=== PATIENT | female | born 1950 | race Hispanic/Latino ===

== ENCOUNTER → 2018-08-11 | Day surgery (SDC) | payer OTHER ==
[2018-08-06 09:55] LABS: BASOPHILS # (AUTO) 0.1 (0.0-0.1); BASOPHILS % 1.2 % (0.0-1.0); EOSINOPHILS # (AUTO) 0.1 (0.0-0.4); EOSINOPHILS % 2.7 % (0.0-6.0); HEMATOCRIT 45.3 % (34.2-44.1); HEMOGLOBIN 15.4 g/dL (12.0-16.0); LYMPHOCYTES # (AUTO) 2.3 (1.0-3.2); LYMPHOCYTES % 43.6 % (18.0-39.1); MEAN CORPUSCULAR HEMOGLOBIN 29.6 pg (28-32); MEAN CORPUSCULAR VOLUME 86.9 fL (81-99); MONOCYTES # (AUTO) 0.5 (0.2-0.8); MONOCYTES % 9.2 % (4.4-11.3); NEUTROPHILS # (AUTO) 2.3 (2.1-6.9); NEUTROPHILS % 43.1 % (38.7-80.0); PLATELET COUNT 286 x10e3/uL (140-360); RED BLOOD COUNT 5.21 x10e6/uL (3.6-5.1); RED CELL DISTRIBUTION WIDTH 12.8 % (11.7-14.4)
[~2018-08-11] MED LIST: ACID REFLUX; FENTANYL CITRATE/PF 100MCG/2 ML INJ ONE; HYOSCYAMINE SULFATE 0.5 MG/ML INJ ONE; MIDAZOLAM HCL 2 MG/2 ML VIAL ONE; PHENYLEPHRINE HCL 1% 10 MG/ML VIAL ONE; PROPOFOL IV EMULSION 10 MG/ML 50 ML VIAL ONE
--- OUTSIDE RECORDS SUMMARY | 2018-08-11 09:03 | XMS REPORT ---
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 Conditions or Problems Problem Name Problem Code Onset Date Status Entry Date Provider Comment Standard Description Annotate Abdominal bloating 787.3 Active Moises Ziegler MD Flatulence, eructation, and gas pain Abfnd Pap smear HPV DNA 079.4 Active Yoli Ling MD Human papillomavirus infection in conditions classified elsewhere and of unspecified site ASCUS Pap 795.01 Active Yoli Ling MD Papanicolaou smear of cervix with atypical squamous cells of undetermined significance (ASC-US) Mammogram, Screening V76.12 Active Yoli Ling MD Other screening mammogram Screening Pap smear exam for cervical cancer V76.2 Active Yoli Ling MD Screening for malignant neoplasms of the cervix Annual exam V70.0 Active Lida Fairbanks MD Routine general medical examination at a health care facility BMI 26.0-26.9 Active Lida Fairbanks MD Body Mass Index 26.0-26.9, adult Hyperlipidemia 272.4 Active Lida Fairbanks MD Other and unspecified hyperlipidemia Immunization update V15.9 Active Lida Fairbanks MD Unspecified personal history presenting hazards to health Overweight Active Lida Fairbanks MD Overweight Strain of muscle and tendon of Pectoralis major, initial encounter 848.8 Active Lida Fairbanks MD Other specified sites of sprains and strains Screening, STD V74.5 Inactive Lida Fairbanks MD Screening examination for venereal disease Screening, STD ICD-V74.5 Inactive Lida Fairbanks MD Medication List Medication Instructions Start Date Stop Date Generic Name NDC Status Provider Patient Instruction LIPITOR 10 MG ORAL TABLET 1 by mouth every pm ATORVASTATIN CALCIUM 11939381706 Active Lida Fairbanks MD Active BIOFREEZE 4 % EXTERNAL GEL Apply with massage as needed over affected area BIOFREEZE 4 % EXTERNAL GEL MENTHOL (TOPICAL ANALGESIC) Inactive MELOXICAM 15 MG ORAL TABLET Take 1 tablet Every Day MELOXICAM 15 MG ORAL TABLET 813722 MELOXICAM Inactive BIOFREEZE 4 % EXTERNAL GEL Apply with massage as needed over affected area MENTHOL (TOPICAL ANALGESIC) 25963047203 No Longer Active Yoli Ling MD Active MELOXICAM 15 MG ORAL TABLET Take 1 tablet Every Day MELOXICAM [id number] No Longer Active Yoli Ling MD Active Immunizations Vaccine Administration Date Value Standard Description influenza immunization (Flu Vax) has been administered given influenza virus vaccine, unspecified formulation PEDIATRIC PNEUMOCOCCAL VACCINE ([id number]) #1 given pneumococcal conjugate vaccine, 13 valent varicella shingles vaccine given varicella virus vaccine Vital Signs Date Name Value Unit Range Description blood pressure, diastolic 79 mm[Hg] BP zamora blood pressure, systolic 116 mm[Hg] BP sys height E&M 62 [in_us] Bdy height pulse rate E&M 89 /min Heart rate respiratory rate E&M 20 /min Resp rate temperature E&M 98.5 [degF] Body temperature weight E&M 139 [lb_av] Weight Measured blood pressure, diastolic 78 mm[Hg] BP zamora blood pressure, systolic 126 mm[Hg] BP sys height E&M 62 [in_us] Bdy height pulse rate E&M 73 /min Heart rate temperature E&M 98.1 [degF] Body temperature weight E&M 137.13 [lb_av] Weight Measured blood pressure, diastolic 81 mm[Hg] BP zamora blood pressure, systolic 104 mm[Hg] BP sys height E&M 62 [in_us] Bdy height pulse rate E&M 93 /min Heart rate temperature E&M 98.1 [degF] Body temperature weight E&M 140.38 [lb_av] Weight Measured blood pressure, diastolic, second observation 75 mm[Hg] BP zamora blood pressure, diastolic 75 mm[Hg] BP zamora blood pressure, systolic, second observation 127 mm[Hg] BP sys blood pressure, systolic 127 mm[Hg] BP sys height E&M 62 [in_us] Bdy height pulse rate E&M 92 /min Heart rate temperature E&M 97.6 [degF] Body temperature weight E&M 142.13 [lb_av] Weight Measured Diagnostic Results Date Name Value Unit Range Description Lab Report: CBC With Differential/Platelet, Comp. Metabolic Panel (14), ... - Chemistry thyroid stimulating hormone, serum 4.730 u[iU]/mL 0.450-4.500 very low density lipoproteins 37 mg/dL 5-40 hepatitis B surface antigen Negative Negative chloride, serum 103 mmol/L 96-106 urea nitrogen, blood 12 mg/dL 8-27 Lab Report: Urinalysis, Routine - Urinalysis leukocyte esterase, urine, by dipstick Negative Negative Lab Report: CBC With Differential/Platelet, Comp. Metabolic Panel (14), ... - Hematology mean corpuscular hemoglobin concentration, RBC 33.5 G/DL % 31.5-35.7 erythrocyte (RBC) count 4.99 X10E6/UL 10*6/mm3 3.77-5.28 Lab Report: CBC With Differential/Platelet, Comp. Metabolic Panel (14), ... - Serology hepatitis C antibody, serum <0.1 0.0-0.9 Lab Report: Urinalysis, Routine - Urinalysis urine color Yellow Yellow bilirubin, urine Negative Negative Lab Report: CBC With Differential/Platelet, Comp. Metabolic Panel (14), ... - Chemistry Absolute Neutrophils 2.6 X10E3/UL 10*3/uL 1.4-7.0 LDL cholesterol, serum 163 mg/dL 0-99 urea nitrogen/creatinine ratio, serum 13 12-28 Lab Report: CBC With Differential/Platelet, Comp. Metabolic Panel (14), ... - Hematology mean corpuscular volume, RBC 89 fL 79-97 Lab Report: CBC With Differential/Platelet, Comp. Metabolic Panel (14), ... - Chemistry HDL cholesterol, serum 51 mg/dL >39 Lab Report: CBC With Differential/Platelet, Comp. Metabolic Panel (14), ... - Hematology monocytes as percent of blood leukocytes 9 % Not Estab. Lab Report: CBC With Differential/Platelet, Comp. Metabolic Panel (14), ... - Chemistry albumin/globulin ratio, serum 1.7 1.2-2.2 creatinine, serum 0.94 mg/dL 0.57-1.00 cholesterol, serum 251 mg/dL 319-334 6594/10/05 bilirubin, serum, total 0.4 mg/dL 0.0-1.2 Lab Report: CBC With Differential/Platelet, Comp. Metabolic Panel (14), ... - Hematology Eosinophil Absolute Count 0.1 X10E3/UL 10*3/uL 0.0-0.4 Lab Report: Urinalysis, Routine - Urinalysis appearance, urine Clear Clear Lab Report: CBC With Differential/Platelet, Comp. Metabolic Panel (14), ... - Chemistry aspartate aminotransferase (SGOT), serum 20 U/L 0-40 Lab Report: CBC With Differential/Platelet, Comp. Metabolic Panel (14), ... - Hematology red blood cell distribution width 13.6 % 12.3-15.4 Lab Report: Urinalysis, Routine - Urinalysis urinalysis, microscopic examination MICNIP pH, urine, semiquantitative 7.5 5.0-7.5 Lab Report: CBC With Differential/Platelet, Comp. Metabolic Panel (14), ... - Hematology leukocyte count, blood 5.0 X10E3/UL 10*3/mm3 3.4-10.8 Lab Report: CBC With Differential/Platelet, Comp. Metabolic Panel (14), ... - Chemistry potassium, serum 4.7 mmol/L 3.5-5.2 albumin, serum 4.9 g/dL 3.6-4.8 immature granulocytes, percentage of total cells, blood 1 % Not Estab. Lab Report: CBC With Differential/Platelet, Comp. Metabolic Panel (14), ... - Hematology lymphocyte count, blood, automated 1.9 X10E3/UL 10*3/mm3 0.7-3.1 hematocrit, blood 44.5 % 34.0-46.6 Lab Report: CBC With Differential/Platelet, Comp. Metabolic Panel (14), ... - Chemistry sodium, serum 141 mmol/L 134-144 Lab Report: CBC With Differential/Platelet, Comp. Metabolic Panel (14), ... - Hematology neutrophils as percent of blood leukocytes 50 % Not Estab. basophils as percent of blood leukocytes 0 % Not Estab. Lab Report: Urinalysis, Routine - Chemistry specific gravity, body fluid 1.011 1.005-1.030 Lab Report: Urinalysis, Routine - Urinalysis protein, urine, semiquantitative (dipstick) Negative Negative/Trace Lab Report: CBC With Differential/Platelet, Comp. Metabolic Panel (14), ... - Serology rapid plasma reagin antibody, serum Non Reactive Non Reactive Lab Report: CBC With Differential/Platelet, Comp. Metabolic Panel (14), ... - Chemistry carbon dioxide, venous blood 22 mmol/L 20-29 Lab Report: Urinalysis, Routine - Chemistry nitrate, urine Negative Negative Lab Report: CBC With Differential/Platelet, Comp. Metabolic Panel (14), ... - Chemistry triglyceride, serum, fasting 185 mg/dL 0-149 calcium, serum 10.6 mg/dL 8.7-10.3 alanine aminotransferase (SGPT), serum 20 U/L 0-32 Lab Report: CBC With Differential/Platelet, Comp. Metabolic Panel (14), ... - Hematology mean corpuscular hemoglobin, RBC 29.9 pg 26.6-33.0 Lab Report: CBC With Differential/Platelet, Comp. Metabolic Panel (14), ... - Chemistry protein, total, serum 7.8 g/dL 6.0-8.5 alkaline phosphatase, serum 113 U/L 39-117 Lab Report: CBC With Differential/Platelet, Comp. Metabolic Panel (14), ... - Hematology hemoglobin, blood 14.9 g/dL 11.1-15.9 lymphocytes as percent of blood leukocytes 37 % Not Estab. Lab Report: Urinalysis, Routine - Urinalysis glucose, urine, semiquantitative Negative Negative Lab Report: CBC With Differential/Platelet, Comp. Metabolic Panel (14), ... - Genetics/fertility eGFR if 73 mL/min/1.73m2 >59 Lab Report: CBC With Differential/Platelet, Comp. Metabolic Panel (14), ... - Chemistry thyroxine, serum, free 1.14 ng/dL 0.82-1.77 Lab Report: CBC With Differential/Platelet, Comp. Metabolic Panel (14), ... - Hematology basophil count, absolute 0.0 x10E3/uL 0.0-0.2 Lab Report: CBC With Differential/Platelet, Comp. Metabolic Panel (14), ... - Chemistry globulin, serum 2.9 1.5-4.5 Estimated Glomerular Filtration Rate (calc) 63 mL/min/1.73m2 >59 Lab Report: Urinalysis, Routine - Basic Occult Blood, urine Negative Negative Lab Report: CBC With Differential/Platelet, Comp. Metabolic Panel (14), ... - Hematology eosinophils as percent of blood leukocytes 3 % Not Estab. Lab Report: CBC With Differential/Platelet, Comp. Metabolic Panel (14), ... - Chemistry blood glucose, random 96 mg/dL 65-99 Lab Report: Urinalysis, Routine - Urinalysis urobilinogen, urine, semiquantitative (dipstick) 0.2 0.2-1.0 Lab Report: CBC With Differential/Platelet, Comp. Metabolic Panel (14), ... - Hematology monocyte count, blood, automated 0.4 X10E3/UL 10*3/uL 0.1-0.9 Lab Report: Urinalysis, Routine - Urinalysis ketones, urine, by test strip Negative Negative Lab Report: CBC With Differential/Platelet, Comp. Metabolic Panel (14), ... - Hematology platelet count 180 X10E3/UL 10*3/mm3 150-379 Encounters Date Encounter Provider Code Facility 21:12:37 [employer] [facility] Est Patient Exp Problem - 04738 Moises Ziegler MD CPT-63216 [facility] 16:47:29 CDT Est Patient Exp Problem - 51187 Lida Fairbanks MD CPT-32338 [facility] Procedures Code Procedure Name Date Entry Date Standard Description [id number] Colposcopy w/o Biopsy 10:41:04 [employer]
[2018-08-11 13:30] VITALS: BP 133/91
== END | disposition home or self-care (01) ==
LOC: OR 09:00
PROVIDERS: ATTEND Internal Medicine Gastroenterology
DX: Z12.11 Encounter for screening for malignant neoplasm of colon (principal); K64.8 Other hemorrhoids; K57.30 Diverticulosis of large intestine without perforation or abscess without bleeding; N28.1 Cyst of kidney, acquired; R10.13 Epigastric pain; R10.31 Right lower quadrant pain; R14.0 Abdominal distension (gaseous)
CPT/HCPCS: 36415; 45378; 85025; 93005; J1980; J2250; J2370

== ENCOUNTER → 2018-08-13 | Outpatient (CLI) | payer OTHER ==
[~2018-08-13] MED LIST changes: -FENTANYL CITRATE/PF 100MCG/2 ML INJ ONE; -HYOSCYAMINE SULFATE 0.5 MG/ML INJ ONE; -MIDAZOLAM HCL 2 MG/2 ML VIAL ONE; -PHENYLEPHRINE HCL 1% 10 MG/ML VIAL ONE; -PROPOFOL IV EMULSION 10 MG/ML 50 ML VIAL ONE
--- NOTE | 2018-08-13 13:31 | Diagnostic Imaging Report ---
Exam: Pelvic ultrasound. History: Right lower quadrant abdominal pain. Comparison: None. Findings: Transabdominal ultrasound. The uterus is reportedly surgically absent per the patient. The bilateral ovaries are not seen, likely secondary to overlying bowel gas. No free fluid is present. The bladder is unremarkable in appearance. Impression: Status post hysterectomy per the patient. The bilateral ovaries are not seen, likely secondary to overlying bowel gas. No free fluid. Signed by: Dr. Fabrice Polanco MD on 08/13/2018 1:27 PM
== END ==
LOC: US 10:16
PROVIDERS: ATTEND Internal Medicine Gastroenterology
DX: R10.31 Right lower quadrant pain (principal)
CPT/HCPCS: 76856

== ENCOUNTER → 2019-05-07 | Day surgery (SDC) | payer OTHER ==
[2019-04-29 16:57] LABS: BASOPHILS # (AUTO) 0.1 (0.0-0.1); BASOPHILS % 0.9 % (0.0-1.0); EOSINOPHILS # (AUTO) 0.2 (0.0-0.4); EOSINOPHILS % 3.3 % (0.0-6.0); HEMATOCRIT 43.2 % (34.2-44.1); HEMOGLOBIN 14.9 g/dL (12.0-16.0); LYMPHOCYTES # (AUTO) 2.6 (1.0-3.2); LYMPHOCYTES % 47.9 % (18.0-39.1); MEAN CORPUSCULAR HEMOGLOBIN 30.4 pg (28-32); MEAN CORPUSCULAR HGB CONC 34.5 g/dL (31-35); MEAN CORPUSCULAR VOLUME 88.2 fL (81-99); MONOCYTES # (AUTO) 0.6 (0.2-0.8); MONOCYTES % 11.7 % (4.4-11.3); PLATELET COUNT 301 x10e3/uL (140-360); RED CELL DISTRIBUTION WIDTH 12.9 % (11.7-14.4)
[~2019-05-07] MED LIST changes: +ATORVASTATIN CA20 MG PO; +FENTANYL CITRATE/PF 100MCG/2 ML INJ ONE; +OMEPRAZOLE40 MG PO; +PROPOFOL IV EMULSION 10 MG/ML 50 ML VIAL ONE
--- OUTSIDE RECORDS SUMMARY | 2019-05-07 09:20 | XMS REPORT ---
Author Author Admin, [place] Organization Unknown Address Unknown Phone Unavailable PROBLEMS Condition Status Date Provider Notes Dyspepsia active Vinny Guzman Seborrheic keratosis active Vinny Guzman Need for prophylactic vaccination with unspecified combined vaccine completed - Gisela Shaw Need for prophylactic vaccination with unspecified combined vaccine completed - Gisela Shaw Abdominal bloating completed - Vinny Guzman Abfnd Pap smear HPV DNA active Yoli Ling ASCUS Pap completed - Vinny Guzman Screening Pap smear exam for cervical cancer completed - Vinny Guzman Mammogram, Screening completed - Eugenieo Guzman Hyperlipidemia active Lida Fairbanks Immunization update completed - Eugenieo Megan Screening, STD completed - Lida Fairbanks Annual exam completed - Vinny Guzman Strain of muscle and tendon of Pectoralis major, initial encounter completed - Yano Megan BMI 26.0-26.9 active Lida Fairbanks Overweight active Lida Fairbanks ENCOUNTERS Date Type Provider Location Encounter Diagnosis - [facility] UNK - Ambulatory Encounter Martha Rosado [facility] - Ambulatory Encounter Vinny Guzman [facility] UNK - Ambulatory Encounter Vinny Guzman [facility] UNK - Ambulatory Encounter Vinny Malloyal Vinny Guzman [facility] UNK - Ambulatory Encounter Moises Guzman [facility] Screening Pap smear exam for cervical cancerAbdominal bloating - [facility] Vinny Guzman [facility] UNK - Ambulatory Encounter Vinny Guzman [facility] UNK - Ambulatory Encounter Vinny Guzman [facility] UNK - Ambulatory Encounter Vinny Guzman [facility] UNK - Ambulatory Encounter Moises Gil [facility] Strain of muscle and tendon of Pectoralis major, initial encounterAnnual examImmunization updateMammogram, ScreeningASCUS PapSeborrheic keratosisDyspepsia - Ambulatory Encounter Duyen Varela [facility] UNK - Ambulatory Encounter Martha Prather [facility] UNK - Ambulatory Encounter Gisela Shaw [facility] Need for prophylactic vaccination with unspecified combined vaccine - Ambulatory Encounter Gisela Shaw [facility] Need for prophylactic vaccination with unspecified combined vaccine - Ambulatory Encounter Martha Rosado [facility] UNK - Ambulatory Encounter Indigo Cameron [employer] [facility] UNK - Ambulatory Encounter Berariel Cameron [facility] UNK - Ambulatory Encounter Indigo Cameron [facility] UNK - Ambulatory Encounter Moises Flynn [facility] Abdominal bloating - Ambulatory Encounter Gisel Gunn [facility] ROLL CUTTING OPERATOR UNK - Ambulatory Encounter Gisel Gunn [facility] ROLL CUTTING OPERATOR UNK - Ambulatory Encounter Gisel David [facility] ROLL CUTTING OPERATOR UNK - Ambulatory Encounter Kristel Soares [facility] UNK - Ambulatory Encounter Yoli Ling [facility] ASCUS PapAbfnd Pap smear HPV DNA - Ambulatory Encounter Lida Fairbanks Lida Fairbanks [employer] Yoli Soares [facility] UNK - Ambulatory Encounter Lida Fairbanks Lida Fairbanks [employer] [facility] UNK - Ambulatory Encounter Yoli Ling [employer] UNK - Ambulatory Encounter Lida Fairbanks [facility] En[facility] Lida Fairbanks [facility] UNK - Ambulatory Encounter Lida Fairbanks [facility] UNK - Ambulatory Encounter Lida Ramirezdo Camerona S Colin Higgins S Colin Yoli Ling [facility] Mammogram, ScreeningScreening Pap smear exam for cervical cancer - Ambulatory Encounter Kristel Soares [facility] UNK - Ambulatory En[facility]da [facility] UN[facility] - Ambulatory Encounter Lida Fairbanks [facility] UNK - [facility] - [facility] - Ambulatory Encounter Lida Fairbanks [facility] UNK - Ambulatory Encounter Lida Ramirezdo Camerona S Colin Camerona S Colin Humphries [facility] OverweightBMI 26.0-26.9Strain of muscle and tendon of Pectoralis major, initial encounterAnnual examScreening, STDImmunization updateHyperlipidemia VITAL SIGNS No Information Available Allergies No Known Allergy Information REASON FOR REFERRAL Start Date - End Date Service - Ultrasound - Pelvic - Ultrasound - Abdominal - Mammogram - Screening RESULTS Date Observation Value Provider Reference Range Interpretation Location cancer 125 antigen 16.0 1/mL [employer] 0.0-38.1 hemoglobin A1C, blood, as % of total hemoglobin 5.6 % [employer] 4.8-5.6 " LDL cholesterol, serum 91 mg/dL [employer] 0-99 " very low density lipoproteins 23 mg/dL [employer] 5-40 " HDL cholesterol, serum 50 mg/dL [employer] >39 " triglyceride, serum, fasting 114 mg/dL [employer] 0-149 " cholesterol, serum 164 mg/dL [employer] 100-199 " alanine aminotransferase (SGPT), serum 17 1/L [employer] 0-32 " aspartate aminotransferase (SGOT), serum 19 1/L [employer] 0-40 " alkaline phosphatase, serum 89 1/L [employer] 39-117 " bilirubin, serum, total 0.5 mg/dL [employer] 0.0-1.2 " albumin/globulin ratio, serum 1.8 [employer] 1.2-2.2 " globulin, serum 2.6 [employer] 1.5-4.5 " albumin, serum 4.8 g/dL [employer] 3.6-4.8 " protein, total, serum 7.4 g/dL [employer] 6.0-8.5 " calcium, serum 10.5 mg/dL [employer] 8.7-10.3 High " carbon dioxide, venous blood 25 mmol/L [employer] 20-29 " chloride, serum 106 mmol/L [employer] 96-106 " potassium, serum 5.9 mmol/L [employer] 3.5-5.2 High " sodium, serum 144 mmol/L [employer] 134-144 " urea nitrogen/creatinine ratio, serum 14 [employer] 12-28 " eGFR if 68 mL/min/((173/100).m2) [employer] >59 " Estimated Glomerular Filtration Rate (calc) 59 mL/min/((173/100).m2) [employer] >59 Low " creatinine, serum 0.99 mg/dL [employer] 0.57-1.00 " urea nitrogen, blood 14 mg/dL [employer] 8-27 " blood glucose, random 93 mg/dL [employer] 65-99 hepatitis B surface antigen Negative [employer] Negative " thyroxine, serum, free 1.14 ng/dL [employer] 0.82-1.77 " thyroid stimulating hormone, serum 4.730 u[iU]/mL [employer] 0.450-4.500 High " hepatitis C antibody, serum <0.1 [employer] 0.0-0.9 " HIV-CMIA (Chemiluminescent Microparticle Immuno Assay) Non Reactive [employer] Non Reactive " rapid plasma reagin antibody, serum Non Reactive [employer] Non Reactive " LDL cholesterol, serum 163 mg/dL [employer] 0-99 High " very low density lipoproteins 37 mg/dL [employer] 5-40 " HDL cholesterol, serum 51 mg/dL [employer] >39 " triglyceride, serum, fasting 185 mg/dL [employer] 0-149 High " cholesterol, serum 251 mg/dL [employer] 100-199 High " alanine aminotransferase (SGPT), serum 20 1/L [employer] 0-32 " aspartate aminotransferase (SGOT), serum 20 1/L [employer] 0-40 " alkaline phosphatase, serum 113 1/L [employer] 39-117 " bilirubin, serum, total 0.4 mg/dL [employer] 0.0-1.2 " albumin/globulin ratio, serum 1.7 [employer] 1.2-2.2 " globulin, serum 2.9 [employer] 1.5-4.5 " albumin, serum 4.9 g/dL [employer] 3.6-4.8 High " protein, total, serum 7.8 g/dL [employer] 6.0-8.5 " calcium, serum 10.6 mg/dL [employer] 8.7-10.3 High " carbon dioxide, venous blood 22 mmol/L [employer] 20-29 " chloride, serum 103 mmol/L [employer] 96-106 " potassium, serum 4.7 mmol/L [employer] 3.5-5.2 " sodium, serum 141 mmol/L [employer] 134-144 " urea nitrogen/creatinine ratio, serum 13 [employer] 12-28 " eGFR if 73 mL/min/((173/100).m2) [employer] >59 " Estimated Glomerular Filtration Rate (calc) 63 mL/min/((173/100).m2) [employer] >59 " creatinine, serum 0.94 mg/dL [employer] 0.57-1.00 " urea nitrogen, blood 12 mg/dL [employer] 8-27 " blood glucose, random 96 mg/dL [employer] 65-99 " immature granulocytes, percentage of total cells, blood 1 % [employer] Not Estab. " basophil count, absolute 0.0 x10E3/uL [employer] 0.0-0.2 " Eosinophil Absolute Count 0.1 X10E3/UL [employer] 0.0-0.4 " monocyte count, blood, automated 0.4 X10E3/UL [employer] 0.1-0.9 " lymphocyte count, blood, automated 1.9 X10E3/UL [employer] 0.7-3.1 " Absolute Neutrophils 2.6 X10E3/UL [employer] 1.4-7.0 " basophils as percent of blood leukocytes 0 % [employer] Not Estab. " eosinophils as percent of blood leukocytes 3 % [employer] Not Estab. " monocytes as percent of blood leukocytes 9 % [employer] Not Estab. " lymphocytes as percent of blood leukocytes 37 % [employer] Not Estab. " neutrophils as percent of blood leukocytes 50 % [employer] Not Estab. " platelet count 180 X10E3/UL [employer] 150-379 " red blood cell distribution width 13.6 % [employer] 12.3-15.4 " mean corpuscular hemoglobin concentration, RBC 33.5 G/DL [employer] 31.5-35.7 " mean corpuscular hemoglobin, RBC 29.9 pg [employer] 26.6-33.0 " mean corpuscular volume, RBC 89 fL [employer] 79-97 " hematocrit, blood 44.5 % [employer] 34.0-46.6 " hemoglobin, blood 14.9 g/dL [employer] 11.1-15.9 " erythrocyte (RBC) count 4.99 X10E6/UL [employer] 3.77-5.28 " leukocyte count, blood 5.0 X10E3/UL [employer] 3.4-10.8 urinalysis, microscopic examination MICNIP [employer] " nitrate, urine Negative [employer] Negative " urobilinogen, urine, semiquantitative (dipstick) 0.2 [employer] 0.2-1.0 " bilirubin, urine Negative [employer] Negative " ketones, urine, by test strip Negative [employer] Negative " glucose, urine, semiquantitative Negative [employer] Negative " protein, urine, semiquantitative (dipstick) Negative [employer] Negative/Trace " leukocyte esterase, urine, by dipstick Negative [employer] Negative " appearance, urine Clear [employer] Clear " urine color Yellow [employer] Yellow " pH, urine, semiquantitative 7.5 [employer] 5.0-7.5 " specific gravity, body fluid 1.011 [employer] 1.005-1.030 HISTORY OF IMMUNIZATIONS Date Vaccine Dose Lot Number Status Fluzone High-Dose IM [id number] sanofi pasteur 0.5 mL [id number] completed HISTORY OF MEDICATION USE Medication Instructions Dates Provider Comments PANTOPRAZOLE SODIUM 40 MG ORAL TABLET DELAYED RELEASE 1 tablet in morning before breakfast By Mouth daily Vinny Guzman METAMUCIL 48.57 % ORAL POWDER 1 tsp mixed in liquid up to 3 times per day Vinny Guzman EQ GAS RELIEF EXTRA STRENGTH 125 MG ORAL TABLET CHEWABLE 1 By Mouth Twice a Day Eugenieo Megan LIPITOR 10 MG ORAL TABLET 1 by mouth every pm Lida Fairbanks thai BIOFREEZE 4 % EXTERNAL GEL Apply with massage as needed over affected area - Lida Fairbanks MELOXICAM 15 MG ORAL TABLET Take 1 tablet Every Day - Lida Fairbanks thai SOCIAL HISTORY Date Observation Value Provider drug use, illicit Never Alice Cameron " alcohol use Never Alice Cameron " social history reviewed E&M reviewed today Alice Cameron " sexual orientation Heterosexual Alice Cameron " assessment of health literacy ([facility] 2014 Standards, 3C10) Adequate Alice Cameron " passive cigarette smoke exposure No Alice Cameron " smoking status never smoker Alice Cameron " Exercise Program Referral T Alice Jack " Weight Management Counseling Provided T Alice Rakesh " Nutrition intervention T Alice Rakesh Patient was counseled for sexual safety Counseled for sexual health safety. Vinny Guzman " Exercise Program Referral T Vinny Guzman " Weight Management Counseling Provided T Vinny Guzman " Nutrition intervention T Vinny Guzman " is there any chance that you could be ? No Vinny Guzman " drug use, illicit Never Jessi Lara " alcohol use Never Jessi Lara " social history reviewed E&M reviewed today Jessi Lara " assessment of health literacy ([facility] 2014 Standards, 3C10) Adequate Jessisacha Lara " passive cigarette smoke exposure No Jessisacha Lara " smoking status never smoker Jessi Lara time of call 01/01/2019 1:21 PM Vera Varlea drug use, illicit Never Monica Gee " alcohol use Never Monica Gee " social history reviewed E&M reviewed today Monica Flynn " sexual orientation Heterosexual Monica Flynn " passive cigarette smoke exposure No Monica Flynn " smoking status never smoker Monica Gee " Exercise Program Referral T Monica Flynn " Weight Management Counseling Provided T Monica Flynn " Nutrition intervention T Monica Flynn " is there any chance that you could be ? No Martha David " passive cigarette smoke exposure No Martha Cosbycolinda " smoking status never smoker Martha David time of call 04/17/2018 4:15 PM Kristel Soares Exercise Program Referral T Lida Fairbanks " Weight Management Counseling Provided T Lida Fairbanks " Nutrition intervention T Lida Fairbanks " drug use, illicit Never Kristel Soares " alcohol use Never Kristel Soares " social history reviewed E&M reviewed today Kristel Soares " sexual orientation Heterosexual Kristel Soares " is there any chance that you could be ? No Kristel Soares " passive cigarette smoke exposure No Kristel Soares " smoking status never smoker Kristel Soares time of call 03/26/2018 10:39 AM Kristel Soares Exercise Program Referral T Lida Fairbanks " Weight Management Counseling Provided T Lida Fairbanks " Nutrition intervention T Lida Fairbanks " sex at Female Kristel Soares " patient considered to be homeless No Kristel Soares " drug use, illicit Never Kristel Soares " alcohol use Never Kristel Soares " sexual orientation Heterosexual Kristel Soares " is there any chance that you could be ? No Kristel Soares " passive cigarette smoke exposure No Kristel Soares " smoking status never smoker Kristel Soares FUNCTIONAL STATUS No Information Available MENTAL STATUS Date Observation Value Provider assessment of judgment and insight E&M intact Vinny Guzman " mental status examination: orientation E&M oriented to time, place, and person Yandro Guzman " assessment of mood and affect E&M anxious Yandro Megan " Generalized Anxiety Disorder Questionnaire - Question 2 0 Alice Cameron " Generalized Anxiety Disorder Questionnaire - Question 1 0 Alice Cameron mental status examination: orientation E&M oriented to time, place, and person Yandro Guzman " assessment of mood and affect E&M no depression, anxiety, or agitation Yandro Guzman " Generalized Anxiety Disorder Questionnaire - Question 2 0 Jessi Lara " Generalized Anxiety Disorder Questionnaire - Question 1 0 Jessi Lara assessment of judgment and insight E&M intact Berlondrika Nisha " mental status examination: orientation E&M oriented to time, place, and person Berlondrika Nisha " assessment of mood and affect E&M no depression, anxiety, or agitation Berlondrika Nisha " Generalized Anxiety Disorder Questionnaire - Question 2 0 Monica Flynn " Generalized Anxiety Disorder Questionnaire - Question 1 0 Monica Flynn Generalized Anxiety Disorder Questionnaire - Question 2 0 Martha David " Generalized Anxiety Disorder Questionnaire - Question 1 0 Martha David mental status examination: orientation E&M oriented to time, place, and person Lida Fairbanks " Generalized Anxiety Disorder Questionnaire - Question 2 0 Kristel Soares " Generalized Anxiety Disorder Questionnaire - Question 1 0 Kristel Soares assessment of judgment and insight E&M intact Lida Fairbanks " mental status examination: orientation E&M oriented to time, place, and person Lida Fairbanks " Generalized Anxiety Disorder Questionnaire - Question 2 0 Kristelmirella Soares " Generalized Anxiety Disorder Questionnaire - Question 1 0 Kristel Soares MEDICAL EQUIPMENT No Information Available FAMILY HISTORY No Information Available INSURANCE PROVIDERS Payer name Policy type / Coverage type Covered alliance party ID Sliding Fee - Cat 1 [employer] insurance [id number] ADVANCE DIRECTIVES No Information Available TREATMENT PLAN Date Name Cancer Antigen (CA) 125 Cancer Antigen (CA) 125 Hemoglobin A1c Lipid Panel Comp. Metabolic Panel (14) Pap w/HPV w rflx 16/18/45 (30+) Urinalysis, Routine HIV 1/2 ANTIGEN/ANTIBODY, FOURTH GENERATION W/RFL HCV Antibody HBsAg Screen RPR, Rfx Qn RPR/Confirm TP TSH Rfx on Abnormal to Free T4 Lipid Panel Comp. Metabolic Panel (14) CBC With Differential/Platelet - - - First Vx - Ix admin via ID IM or jet injects without counseling by physician Fluzone High-Dose IM Vaccines Ordered - Print Consent/Declination Forms Ofc Vst, Est Level III Integrated Behavioral Health Assessment (IBH) Ofc Vst, Est Level III Destruction Benign Lesion - 2 - 14 VARICELLA VIRUS VACCINE LIVE SUBQ Meningococcal Conj Tetravalent (MCV4) Hepatitis A - Adult Admin of Vaccine - Injection - Each Add'l Admin of Vaccine - Injection - 1 MEASLES & RUBELLA VIRUS VACCINE LIVE SUBQ POLIOVIRUS VACCINE INACTIVATED SUBQ/IM TDAP Admin of Vaccine - Injection - Each Add'l Admin of Vaccine - Injection - 1 Est Patient Exp Problem - 49619 Colposcopy w/o Biopsy Est Patient Exp Problem - 73203 Prevnar (PCV13) IM INFLUENZA VACCINE QUADRIVALENT 3 YRS PLUS IM Nutritional Counseling Zoster - Shingles HISTORY OF PROCEDURES Procedure Date Procedure Name Provider Procedure Notes Status First Vx - Ix admin via ID IM or jet injects without counseling by physician Gisela Shaw completed Fluzone High-Dose IM Gisela Shaw completed Vaccines Ordered - Print Consent/Declination Forms Gisela Shaw completed Destruction Benign Lesion - 2 - 14 Moises Ziegler completed Colposcopy w/o Biopsy Gisel Gunn completed GOALS No Information Available HEALTH CONCERNS No Information Available
--- OUTSIDE RECORDS SUMMARY | 2019-05-07 09:20 | XMS REPORT ---
Author Author Admin, [place] Organization Unknown Address Unknown Phone Unavailable PROBLEMS Condition Status Date Provider Notes Dyspepsia active Vinny Guzman Seborrheic keratosis active Vinny Guzman Need for prophylactic vaccination with unspecified combined vaccine completed - Gisela Shaw Need for prophylactic vaccination with unspecified combined vaccine completed - Gisela Shaw Abdominal bloating completed - Vinny Guzman Abfnd Pap smear HPV DNA active Yoil Ling ASCUS Pap completed - Vinny Guzman Screening Pap smear exam for cervical cancer completed - Vinny Guzman Mammogram, Screening completed - Vinny Guzman Hyperlipidemia active Lida Fairbanks Immunization update completed - Vinny Guzman Screening, STD completed - Lida Fairbanks Annual exam completed - Vinny Guzman Strain of muscle and tendon of Pectoralis major, initial encounter completed - Vinny Guzman BMI 26.0-26.9 active Lida Fairbanks Overweight active Lida Fairbanks ENCOUNTERS Date Type Provider Location Encounter Diagnosis - Ambulatory Encounter Gisela Shaw [facility] Vinny Guzman [facility] UNK - Ambulatory Encounter Vinny Guzman [facility] UNK - Ambulatory Encounter Moises Guzman [facility] Screening Pap smear exam for cervical cancerAbdominal bloating - Ambulatory Encounter Martha Doranvez [facility] UNK - Ambulatory Encounter Martha Doranvez [facility] Vinny Guzman [facility] UNK - Ambulatory Encounter Vinny Guzman [facility] UNK - Ambulatory Encounter Vinny Guzman [facility] UNK - Ambulatory Encounter Moises Gil [facility] Strain of muscle and tendon of Pectoralis major, initial encounterAnnual examImmunization updateMammogram, ScreeningASCUS PapSeborrheic keratosisDyspepsia - Ambulatory Encounter Duyen Varela [facility] UNK - Ambulatory Encounter Martha Prather [facility] UNK - Ambulatory Encounter Gisela Higgins [facility] Need for prophylactic vaccination with unspecified combined vaccine - Ambulatory Encounter Gisela Higgins [facility] Need for prophylactic vaccination with unspecified combined vaccine - Ambulatory Encounter Martha Rosado [facility] UNK - Ambulatory Encounter Indigo Cameron [facility] UNK - Ambulatory Encounter Indigo Cameron [facility] UNK - Ambulatory Encounter Indigo Cameron [facility] UNK - Ambulatory Encounter Moises Flynn [facility] Abdominal bloating - [facility] - Ambulatory Encounter Gisel Gunn [facility] UNK - Ambulatory Encounter Gisel David [facility] UNK - Ambulatory Encounter Kristel Soares [facility] UNK - Ambulatory Encounter Yoli Ling [facility] ASCUS PapAbfnd Pap smear HPV DNA - Ambulatory Encounter Lida Fairbanks Lida Fairbanks [facility] UNK - Ambulatory Encounter Lida Fairbanks Lida Fairbanks [facility] UNK - Ambulatory Encounter Yoli Ling [facility] UNK - Ambulatory Encounter Lida [place] [facility] - [facility] Encounter Lida Fairbanks Lida Fairbanks [facility] UNK - Ambulatory Encounter Lida Fairbanks Lida Fairbanks [facility] UNK - Ambulatory Encounter Lida Medinaefrain Kent Sushil Ling [facility] Mammogram, ScreeningScreening Pap smear exam for cervical cancer - [facility] Lida Ramirezdo [facility] UNK - Ambulatory [facility] - [facility] Encounter Lida Fairbanks [facility] UNK - Ambulatory Encounter Lida Medinaefrain Shaw [facility] OverweightBMI 26.0-26.9Strain of muscle and tendon of [...] Dose Lot Number Status Fluzone High-Dose IM [id number] sanofi pasteur 0.5 mL [id number] completed HISTORY OF MEDICATION USE Medication Instructions Dates Provider Comments PANTOPRAZOLE SODIUM 40 MG ORAL TABLET DELAYED RELEASE 1 tablet in morning before breakfast By Mouth daily Vinny Guzman METAMUCIL 48.57 % ORAL POWDER 1 tsp mixed in liquid up to 3 times per day Vinny Guzman EQ GAS RELIEF EXTRA STRENGTH 125 MG ORAL TABLET CHEWABLE 1 By Mouth Twice a Day Vinny Guzman LIPITOR 10 MG ORAL TABLET 1 by mouth every pm Lida hidalgo BIOFREEZE 4 % EXTERNAL GEL Apply with massage as needed over affected area - Lida Fairbanks MELOXICAM 15 MG ORAL TABLET Take 1 tablet Every Day - Lida hidalgo SOCIAL HISTORY Date Observation Value Provider drug use, illicit Never Alice Cameron " alcohol use Never Alice Cameron " social history reviewed E&M reviewed today Alice Cameron " sexual orientation Heterosexual Alice Cameron " assessment of health literacy ([employer] 2014 Standards, 3C10) Adequate Alice Rakesh " passive cigarette smoke exposure No Alice Rakesh " smoking status never smoker Alice Cameron " Exercise Program Referral T Alice Jack " Weight Management Counseling Provided T Alice Cameron " Nutrition intervention T Alice Rakesh Patient was counseled for sexual safety Counseled for sexual health safety. Yandro Guzman " Exercise Program Referral T Yandro Guzman " Weight Management Counseling Provided T Yandro Guzman " Nutrition intervention T Yandro Guzman " is there any chance that you could be ? No Yandro Guzman " drug use, illicit Never Jessi Lara " alcohol use Never Jessi Lara " social history reviewed E&M reviewed today Jessi Lara " assessment of health literacy ([employer] 2014 Standards, 3C10) Adequate Jessi Lara " passive cigarette smoke exposure No Jessi Lara " smoking status never smoker Jessi Lara time of call 01/01/2019 1:21 PM Vera Varela drug use, illicit Never Monica Flynn " alcohol use Never Monica Flynn " social history reviewed E&M reviewed today Monica Flynn " sexual orientation Heterosexual Monica Flynn " passive cigarette smoke exposure No Monica Flynn " smoking status never smoker Monica Flynn " Exercise Program Referral T Monica Flynn " Weight Management Counseling Provided T Monica Flynn " Nutrition intervention T Monica Flynn " is there any chance that you could be ? No Martha Cosbychuck " passive cigarette smoke exposure No Martha Cosbycolinda " smoking status never smoker Martha Cosbycoba time of call 04/17/2018 4:15 PM Kristel [...] E&M oriented to time, place, and person Vinny Guzman " assessment of mood and affect E&M anxious Vinny Guzman " Generalized Anxiety Disorder Questionnaire - Question 2 0 Alice Rakesh " Generalized Anxiety Disorder Questionnaire - Question [...] name Policy type / Coverage type Covered constitution party ID Sliding Fee - Cat 1 [employer] insurance [employer] [id number] ADVANCE DIRECTIVES No Information Available TREATMENT PLAN [...] - 1 Est Patient Exp Problem - 01843 Colposcopy w/o Biopsy Est Patient Exp Problem - 53912 Prevnar (PCV13) IM INFLUENZA VACCINE QUADRIVALENT 3 [...]
--- OUTSIDE RECORDS SUMMARY | 2019-05-07 09:20 | XMS REPORT ---
Author Author [facility] Address Unknown Phone Unavailable Care Team Providers Care Rn Or Lpn Name Role Phone NU GLEASON Unavailable Unavailable Payers Payer Name Policy Type Policy Number Effective Date Expiration Date Problems This patient has no known problems. Allergies, Adverse Reactions, Alerts This patient has no known allergies or adverse reactions. Medications This patient has no known medications. Results Test Description Test Time Test Comments Text Results Atomic Results Result Comments US PELVIS COMPLETE NON OB 2018-08-13 13:25:00 [place] [address] Patient Name: DENA BETANCOURT MR #: [id number] : 1950 Age/Sex: 67/F Req #: [id number] Adm Physician: Ordered by: NU GLEASON MD Report #: [id number] Location: US Room/Bed: Procedure: [id number] US/US PELVIS COMPLETE NON OB Exam Date: 08/13/18 Exam Time: 1204 REPORT STATUS: Signed Exam: Pelvic ultrasound. History: Right lower quadrant abdominal pain. Comparison: None. Findings: Transabdominal ultrasound. The uterus is reportedly surgically absent per the patient. The bilateral ovaries are not seen, likely secondary to overlying bowel gas. No free fluid is present. The bladder is unremarkable in appearance. Impression: Status post hysterectomy per the patient. The bilateral ovaries are not seen, likely secondary to overlying bowel gas. No free fluid. Signed by: Dr. María Bajwa MD on 08/13/2018 1:27 PM Dictated By: MARÍA BAJWA MD [id number] Transcribed By: NORRIS on 08/13/18 1327 COPY TO: NU GLEASON MD - XR ENEMA W/AIR 2018-08-11 21:44:00 FAX: Nu De La Vega MD [phone] [place]: St: REG Name: EDNA ROBLERO [facility] : 1950 Age/S: 67/F [address] [facility] Unit #: [id number] [place]: [place] [address] Phys: Nu Gleason MD Acct: [id number] Dis Date: Status: REG CLI PHONE #: [phone] Exam Date: 08/11/2018 1526 FAX #: [phone] Reason: EXAMS: CPT CODE: [id number] XR ENEMA W/AIR 99424 HISTORY: Incomplete colonoscopy at outside facility TECHNIQUE: Multiple overhead films and fluoroscopic spot views from double contrast enema. Fluoroscopy time 5.7 minutes, radiation dose: 302 mGy FINDINGS: Technical Manager view of the abdomen and pelvis demonstrates nonspecific nonobstructive bowel gas pattern. Free retrograde flow of contrast to the cecum with reflux into the terminal ileum. Limited evaluation of the cecum and ascending colon due to pooling of contrast. No persistent intraluminal filling defects, mucosal irregularity, stricture, nor extrinsic mass effect. IMPRESSION: Limited evaluation of the ascending colon and cecum due to pooling of contrast. No evidence of stricturing or filling defects in this region of the large bowel. Remainder of the large bowel is within normal limits. at 2144 Reported and signed by: Clive Basilio MD CC: Nu Gleason MD Technologist: Tala Mccoy RT(R); RT LADONNA(R) [place] Date/Time/By: 08/11/2018 (2143) : By: [email or web address] Orig Print D/T: S: 08/11/2018 (2146) PAGE 1 Signed Report
--- OUTSIDE RECORDS SUMMARY | 2019-05-07 09:21 | XMS REPORT ---
Author Author Admin, [place] Organization Unknown Address Unknown Phone Unavailable PROBLEMS [...] of Pectoralis major, initial encounter completed - Yanmarialuisa Guzman BMI 26.0-26.9 active Lida Fairbanks Overweight active Lida Fairbanks ENCOUNTERS Date Type Provider Location Encounter Diagnosis - Ambulatory Encounter Martha [facility] - [facility] Gisela Shaw [facility] UNK - Ambulatory Encounter [facility] Ashlee [facility] UNK - Ambulatory Encounter Vinny Guzman [facility] UNK - Ambulatory Encounter Vinny Guzman [facility] UNK - Ambulatory Encounter Vinny Guzman [facility] UNK - Ambulatory Encounter Moises Guzman [facility] Screening Pap smear exam for cervical cancerAbdominal bloating - Ambulatory Encounter [facility] Rosado [facility] UNK - Ambulatory Encounter [facility] UNK - Ambulatory Encounter Vinny Guzman [facility] UNK - Ambulatory Encounter Vinny Guzman [facility] UNK - Ambulatory Encounter Vinny Guzman [facility] UNK - Ambulatory Encounter Vinny Guzman [facility] UNK - Ambulatory Encounter Moises Ruelas [facility] Strain of muscle and tendon of Pectoralis major, initial encounterAnnual examImmunization updateMammogram, ScreeningASCUS PapSeborrheic keratosisDyspepsia - Ambulatory Encounter Duyen Varela [facility] UNK - Ambulatory Encounter Martha Prather [facility] UNK - Ambulatory Encounter Gisela Orellana [facility] Need for prophylactic vaccination with unspecified combined vaccine - Ambulatory Encounter Gisela Orellana [facility] Need for prophylactic vaccination with unspecified combined vaccine - Ambulatory Encounter Martha Rosado [facility] UNK - Ambulatory Encounter Indigo Cameron [facility] UNK - Ambulatory Encounter Indigo Cameron [facility] UNK - Ambulatory Encounter Indigo Cameron [facility] UNK - Ambulatory Encounter Moises Flynn [facility] Abdominal bloating - [facility] Ambulatory Encounter Gisel Gunn [facility] UNK - Ambulatory Encounter Gisel David [facility] UNK - Ambulatory Encounter Kristel Soares [facility] UNK - Ambulatory Encounter Yoli Ling [facility] ASCUS PapAbfnd Pap smear HPV DNA - Ambulatory Encounter Lida Fairbanks Lida Fairbanks [facility] Yoli Soares [facility] UNK - Ambulatory Encounter Lida Fairbanks Lida Fairbanks [facility] UNK - Ambulatory Encounter Yoli Ling [facility] UNK - Ambulatory Encounter Lida Fairbanks Lida Fairbanks [facility] UNK - Ambulatory Encounter Lida Fairbanks [facility] UNK - Ambulatory Encounter Lida Fairbanks [facility] UNK - Ambulatory Encounter Lida Hilton Tiki Kent Sushil Ling Kristel [facility] Mammogram, ScreeningScreening Pap smear exam for cervical cancer - Ambulatory Encounter Kristel Soares [facility] UNK - Ambulatory Encounter [facility] - [facility] Encounter Lida Hilton [place] [facility] UNK - Ambulatory En[facility] [place] [facility] - Ambulatory Encounter [facility] - Ambulatory Encounter Lida Fairbanks [facility] UNK - Ambulatory Encounter Lida Hilton Tiki Humphries [facility] OverweightBMI 26.0-26.9Strain of muscle and tendon of [...] Dose Lot Number Status Fluzone High-Dose IM [id number] sanofi pasteur 0.5 mL [id number] completed HISTORY OF MEDICATION USE Medication Instructions [...] Value Provider drug use, illicit Never Alice Rakesh " alcohol use Never Alice Rakesh " social history reviewed E&M reviewed today Alice Rakesh " sexual orientation Heterosexual Alice Cameron " assessment of health literacy ([facility] 2014 Standards, 3C10) Adequate Alice Rakesh " passive cigarette smoke exposure No Alice Rakesh " smoking status never smoker Alice Cameron " Exercise Program Referral T Alice Cameron " Weight Management Counseling Provided T Alice Cameron " Nutrition intervention T Alice Cameron Patient was counseled for sexual safety Counseled [...] Jessi Lara " assessment of health literacy ([facility] 2014 Standards, 3C10) Adequate Jessi Lara " passive cigarette smoke exposure No Jessi Lara " smoking status never smoker Jessi Lara time of call 01/01/2019 1:21 PM Vera Varela drug use, illicit Never Monica Gee " alcohol use Never Monicakerry Flynn " social history reviewed E&M reviewed today Monica Flynn " sexual orientation Heterosexual Monica Gee " passive cigarette smoke exposure No Monica Gee " smoking status never smoker Monica Gee " Exercise Program Referral T Monica Flynn " Weight Management Counseling Provided T Monica Flynn " Nutrition intervention T Monica Flynn " is there any chance that you could be ? No Martha Rucoba " passive cigarette smoke exposure No Martha Cosbycoba " smoking status never smoker Martha Cosbycoba [...] assessment of judgment and insight E&M intact Wilmerdro Guzman " mental status examination: orientation E&M oriented to time, place, and person Wilmerdro Megan " assessment of mood and affect E&M anxious Wilmerdrestefani Guzman " Generalized Anxiety Disorder Questionnaire - Question 2 0 Alice Rakesh " Generalized Anxiety Disorder Questionnaire - Question 1 0 Alice Cameron mental status examination: orientation E&M oriented to time, place, and person Yandro Guzman " assessment of mood and affect E&M no depression, anxiety, or agitation Yandro Megan " Generalized Anxiety Disorder Questionnaire - Question 2 0 Jessi Lara " Generalized Anxiety Disorder Questionnaire - Question 1 0 Jessi Alonzoa assessment of judgment and insight E&M intact Berlondrika Nisha " mental status examination: orientation E&M oriented to time, place, and person Berlondrika Nisha " assessment of mood and affect E&M no depression, anxiety, or agitation Berlondrika Nisha " Generalized Anxiety Disorder Questionnaire - Question 2 0 Monica Flynn " Generalized Anxiety Disorder Questionnaire - Question 1 0 Monica Flnyn Generalized Anxiety Disorder Questionnaire - Question 2 0 Martha David " Generalized Anxiety Disorder Questionnaire - Question 1 0 Martha David mental status examination: orientation E&M oriented to time, place, and person Lida Fairbanks " Generalized Anxiety Disorder Questionnaire - Question 2 0 Kristel Soares " Generalized Anxiety Disorder Questionnaire - Question 1 0 Kristelmirella WilderSoares assessment of judgment and insight E&M intact [...] name Policy type / Coverage type Covered libertarian ID Sliding Fee - Cat 1 [id number] ADVANCE DIRECTIVES No Information Available TREATMENT PLAN [...] - 1 Est Patient Exp Problem - 98465 Colposcopy w/o Biopsy Est Patient Exp Problem - 55740 Prevnar (PCV13) IM INFLUENZA VACCINE QUADRIVALENT 3 [...]
[2019-05-07 11:35] VITALS: BP 114/72
== END | disposition home or self-care (01) ==
LOC: OR 08:47
PROVIDERS: ATTEND Internal Medicine Gastroenterology
DX: K29.50 Unspecified chronic gastritis without bleeding (principal); B96.81 Helicobacter pylori [H. pylori] as the cause of diseases classified elsewhere; K31.89 Other diseases of stomach and duodenum; K44.9 Diaphragmatic hernia without obstruction or gangrene; K21.9 Gastro-esophageal reflux disease without esophagitis; K64.8 Other hemorrhoids; Z01.810 Encounter for preprocedural cardiovascular examination; Z01.812 Encounter for preprocedural laboratory examination
CPT/HCPCS: 36415; 43239; 85025; 93005; J3010